=== PATIENT | female | born 1990 | race Two or more races ===

== ENCOUNTER 2024-04-06 21:18 | Emergency (ER) | payer MEDICAID, OTHER ==
[~2024-04-06] VITALS: Ht 152.4 cm; Wt 54.4 kg
[2024-04-06 22:32] LABS: APPEARANCE,URINE CLEAR (CLEAR); BILIRUBIN,URINE NEGATIVE (NEGATIVE); BLOOD, URINE NEGATIVE Ery/uL (NEGATIVE); COLOR,URINE YELLOW (YELLOW); KETONES,URINE NEGATIVE (NEGATIVE); LEUKOCYTE ESTERASE ,URINE NEGATIVE (NEGATIVE); NITRITE, URINE NEGATIVE (NEGATIVE); PH,URINE 7.5 (5.0-8.0); PROTEIN,URINE NEGATIVE (NEGATIVE); UGLUCOSE NEGATIVE (NEGATIVE); UROBILINOGEN,URINE 0.2 EU/dL (0.2)
[2024-04-06 22:36] LABS: PREGNANCY TEST URINE QUAL NEGATIVE (NEGATIVE)
[2024-04-06] MEDS ORDERED: NITR100C6 PO (22:37)
[2024-04-06] MEDS ORDERED: NITROFURANTOIN/MONOHYDRATE MACROCRYSTALS 100 MG CAPSULE ONE (22:40)
[2024-04-06] MEDS: NITROFURANTOIN/MONOHYDRATE MACROCRYSTALS 100 MG CAPSULE PO ONE (22:44)
[2024-04-06 23:00] VITALS: BP 118/71; TEMP 98; O2SAT 97
== END 2024-04-06 23:01 | disposition home or self-care (01) ==
LOC: ER 21:27
DX: N39.0 Urinary tract infection, site not specified (principal); M54.50 Low back pain, unspecified
CPT/HCPCS: 84703-TC; 87086-TC

== ENCOUNTER 2024-08-30 20:08 | Emergency (ER) | payer MEDICAID, OTHER ==
[~2024-08-30] VITALS: Ht 149.9 cm; Wt 71.7 kg
[~2024-08-30 20:08] MED LIST: NITR100C6 PO
[2024-08-30] MEDS ORDERED: CEFTRIAXONE 1GM BAG (ER ONLY) 50 ML IV ONE (21:10)
[2024-08-30] MEDS: CEFTRIAXONE 1GM BAG (ER ONLY) 50 ML IV ONE (21:12)
[2024-08-30 21:15] LABS: BASOPHILS # (AUTO) 0.1 K/uL (0.0-0.2); BASOPHILS % (AUTO) 0.7 % (0.0-2.0); EOSINOPHILS # (AUTO) 0.4 K/uL (0.0-0.7); EOSINOPHILS % (AUTO) 5.2 % (0.0-6.0); HEMATOCRIT 35 % (33-45); HEMOGLOBIN 12.3 g/dL (11.5-14.8); LYMPHOCYTES # (AUTO) 2.6 K/uL (0.8-4.8); LYMPHOCYTES % (AUTO) 35.7 % (20.0-44.0); MEAN CORPUSCULAR HEMOGLOBIN 29 PG (26.0-33.0); MEAN CORPUSCULAR HGB CONC 35 g/dl (31.0-36.0); MEAN CORPUSCULAR VOLUME 84 fL (82-100); MONOCYTES # (AUTO) 0.5 K/uL (0.1-1.30); MONOCYTES % (AUTO) 6.4 % (2.0-12.0); NEUTROPHILS # (AUTO) 3.8 K/uL (1.8-8.9); PLATELET COUNT (AUTO) 199 K/uL (150-450); RED CELL DISTRIBUTION WIDTH 13.2 % (11.5-15.0); WHITE BLOOD COUNT (AUTO) 7.3 K/uL (4.3-11.0)
[2024-08-30 21:23] LABS: CALCIUM, SERUM 8.8 mg/dL (8.5-10.1); CREATININE 0.7 mg/dL (0.6-1.3); POTASSIUM 3.6 mmol/L (3.5-5.1)
[2024-08-30 21:35] LABS: APPEARANCE,URINE CLEAR (CLEAR); BILIRUBIN,URINE Negative (NEGATIVE); BLOOD, URINE Negative Ery/uL (NEGATIVE); COLOR,URINE YELLOW (YELLOW); KETONES,URINE Negative (NEGATIVE); LEUKOCYTE ESTERASE ,URINE Trace (NEGATIVE); PH,URINE 7.5 (5.0-8.0); PROTEIN,URINE Negative (NEGATIVE); UGLUCOSE Negative (NEGATIVE); UROBILINOGEN,URINE 0.2 EU/dL (0.2)
[2024-08-30 21:36] LABS: PREGNANCY TEST URINE QUAL NEGATIVE (NEGATIVE)
[2024-08-30 21:39] LABS: NITRITE, URINE NEGATIVE (NEGATIVE)
[2024-08-30] MEDS ORDERED: CEFD300C3 PO (21:43)
[2024-08-30 21:48] LABS: ADD URINE CULTURE NO; BACTERIA,URINE Few /HPF (None Seen); RBC,URINE 0-2 /HPF (0-2); URINE AMORPHOUS PHOSPHATES Few /HPF (None Seen)
[2024-08-30 21:51] VITALS: BP 103/66; TEMP 98; O2SAT 99
== END 2024-08-30 21:51 | disposition home or self-care (01) ==
LOC: ER 20:13
DX: N39.0 Urinary tract infection, site not specified (principal)
CPT/HCPCS: 99284; 96365; 85025; 80048; 87077; 87086; 84703; 81001; 36415; J0696

== ENCOUNTER 2025-05-18 20:07 | Emergency (ER) | payer MEDICAID, OTHER ==
[~2025-05-18] VITALS: Ht 152.4 cm; Wt 56.7 kg
[~2025-05-18 20:07] MED LIST changes: +CEFD300C3 PO
[2025-05-18] MEDS ORDERED: MINERAL OIL 133 ML (PYXIS) 1 EA ENEMA RC ONE (22:37)
[2025-05-18] MEDS: MINERAL OIL 133 ML (PYXIS) 1 EA ENEMA RC ONE (22:46)
[2025-05-18] MEDS ORDERED: POLY119P2 PO (23:02)
[2025-05-18] MEDS ORDERED: DOCU-141 PO (23:02)
[2025-05-18] MEDS ORDERED: HYDR30CR79 TP (23:02)
[2025-05-18 23:09] VITALS: BP 110/56; TEMP 98; O2SAT 99
== END 2025-05-18 23:10 | disposition home or self-care (01) ==
LOC: ER 20:12
DX: K59.00 Constipation, unspecified (principal); K64.9 Unspecified hemorrhoids; Z87.19 Personal history of other diseases of the digestive system; Z91.048 Other nonmedicinal substance allergy status